=== PATIENT | male | born 1980 | race Hispanic/Latino ===

== ENCOUNTER → 2024-05-10 | Outpatient (CLI) | payer MEDICARE ==
[2024-05-10 14:29] LABS: CREATININE 9.9 mg/dL (0.5-1.3)
== END | disposition home or self-care (01) ==
LOC: LAB 13:13
PROVIDERS: ATTEND Urology
DX: N28.1 Cyst of kidney, acquired (principal); N40.0 Benign prostatic hyperplasia without lower urinary tract symptoms
CPT/HCPCS: 36415; 82565; 84520

== ENCOUNTER 2024-11-08 16:11 | Emergency (ER) | payer MEDICARE ==
[~2024-11-08] VITALS: Ht 165.1 cm; Wt 112.5 kg
--- NOTE | 2024-11-08 16:29 | ERN ---
ED Note History of Present Illness Stated Complaint: SWELLING ON LEFT FOOT Chief Complaint: FOOT INJURY/PAIN Time Seen by MD: 16:13 Dictation: PATIENT IS A 44-YEAR-OLD MALE COMING IN WITH LEFT FOOT SWELLING NON TRAUMA FOR ONE WEEK. NO FEVER NO CHILLS NO NAUSEA VOMITING. PATIENT STATES HE HAS A HEMODIALYSIS, WENT TODAY AND COMPLETED 3 HOURS OF HEMODIALYSIS. HE HAS AN APPOINTMENT WITH HIS DOCTOR NEXT WEEK HOWEVER WAS CONCERNED AND WANTED TO COME IN FOR FURTHER EVALUATION AND TREATMENT TODAY. Allergies: Coded Allergies: No Known Allergies (Unverified Allergy, Unknown, 11/08/24) Past Medical History RN Note Reviewed/Agreed w/PFSH: Yes Review of System Dictation CONSTITUTIONAL: NEGATIVE EXCEPT FOR HPI HEAD/FACE: NEGATIVE EXCEPT FOR HPI EENT: NEGATIVE EXCEPT FOR HPI RESPIRATORY: NEGATIVE EXCEPT FOR HPI GASTROINTESTINAL/ABDOMINAL: NEGATIVE EXCEPT FOR HPI GENITOURINARY: NEGATIVE EXCEPT FOR HPI MUSCULOSKELETAL: NEGATIVE EXCEPT FOR HPI LEFT FOOT SWELLING INTEGUMENTARY: NEGATIVE EXCEPT FOR HPI NEUROLOGICAL/PSYCH: NEGATIVE EXCEPT FOR HPI HEMATOLOGIC/LYMPHATIC: NEGATIVE EXCEPT FOR HPI ALL SYSTEMS NEGATIVE, EXCEPT NOTED ABOVE. 13 POINT REVIEW OF SYSTEMS ASSESSED AND ALL NEGATIVE EXCEPT FOR ABOVE. Initial Vital Sign VS Vital Signs Date Time Temp Pulse Resp B/P (MAP) Pulse Ox O2 Delivery O2 Flow Rate FiO2 11/08/24 16:26 97.5 97 16 121/79 100 Room Air 0 11/08/24 16:32 21 Physical Exam Dictation VITAL SIGNS REVIEWED GENERAL APPEARANCE: ALERT, ORIENTED X 3, NO ACUTE DISTRESS, WELL DEVELOPED, NOURISHED. HEAD AND FACE: NON-TRAUMATIC. EYES: PERRL, PINK CONJUNCTIVAS, EYELID NO TRAUMA, ANTERIOR CHAMBER WITH ARCUS SENILIS. EARS: PINNAS INTACT AND NO SIGNS OF TRAUMA OR ERYTHEMA EAR CANALS CLEAR AND NO DISCHARGE TM NO ERYTHEMA NOSE: NO DISCHARGE, NO BLEEDING. OROPHARYNX: MOUTH NORMAL, TONGUE PINK, PHARYNX CLEAR,NO ERYTHEMA, TONSILS NO EXUDATES, NO ABSCESSES NOTED, MUCOUS MEMBRANE MOIST NECK: SUPPLE, NON-TENDER, NO THYROMEGALY, NO MASSES, NO JVD, NO BRUITS BREAST:DEFERRED CHEST:NO TENDERNESS, NO CREPITUS, NO PARADOXICAL MOVEMENT, NO RETRACTIONS LUNGS:CLEAR, WELL-VENTILATED, SYMMETRIC, NO RALES, NO WHEEZING, NO RHONCHI, NO STRIDOR, GOOD BREATH SOUNDS BILATERALLY HEART: REGULAR RATE, REGULAR RHYTHM, NO MURMUR, NO GALLOPS VASCULAR: NO PERIPHERAL EDEMA, ABDOMEN: SOFT, POSITIVE BOWEL SOUNDS, NONDISTENDED, NO GUARDING, NONTENDER, NO REBOUND, NO MASSES NO HEPATOMEGALY, NO SPLENOMEGALY, NO DUGAN'S SIGN, NO HERNIAS. RECTAL: DEFERRED GENITAL: DEFERRED NEUROLOGICAL: NORMAL SPEECH, MOTOR FUNCTION INTACT, SENSORY FUNCTION INTACT MUSCULOSKELETAL: NECK NONTENDER, FULL RANGE OF MOTION, BACK NONTENDER, FULL RANGE OF MOTION, EXTREMITIES: MILD LEFT DORSAL FOOT SWELLING. NO TENDERNESS NO ERYTHEMA PULSES ARE PALPABLE SKIN: COLOR PINK, DRY, NO TURGOR, NO RASH, NO LACERATIONS, NO ABRASIONS, NO CONTUSIONS. LYMPHATIC: DEFERRED Results (Laboratory/Radiology) Laboratory/Radiology Laboratory Tests Test 11/08/24 16:46 White Blood Count 8.2 K/uL (4.8-10.8) Red Blood Count 3.40 MIL/uL (4.50-6.20) L Hemoglobin 10.7 g/dL (14.0-18.0) L Hematocrit 33.9 % (42-54) L Mean Corpuscular Volume 99.7 fL (79-99) H Mean Corpuscular Hemoglobin 31.5 pg (27.0-33.0) Mean Corpuscular Hemoglobin Concent 31.6 g/dL (32.0-36.0) L Red Cell Distribution Width 15.3 % (11.0-15.5) Platelet Count 125 K/uL (130-400) L Mean Platelet Volume 12.0 fL (7.5-10.5) H Immature Granulocyte % (Auto) 0.6 % (0-1) Neutrophils (%) (Auto) 75.1 % (40.0-77.0) Lymphocytes (%) (Auto) 10.7 % (21.0-51.0) L Monocytes (%) (Auto) 9.5 % (3.0-13.0) Eosinophils (%) (Auto) 3.3 % (0.0-8.0) Basophils (%) (Auto) 0.8 % (0.0-5.0) Neutrophils # (Auto) 6.2 K/uL (1.8-7.7) Lymphocytes # (Auto) 0.9 K/uL (1.0-4.8) L Monocytes # (Auto) 0.8 K/uL (0.1-1.0) Eosinophils # (Auto) 0.27 K/uL (0.00-0.70) Basophils # (Auto) 0.07 K/uL (0.00-0.20) Absolute Immature Granulocyte (auto 0.05 K/uL (0-1) Nucleated Red Blood Cells 0.0 % (0.0-0.19) Sodium Level 141 mmol/L (136-145) Potassium Level 4.7 mmol/L (3.5-5.1) Chloride Level 98 mmol/L (101-111) L Carbon Dioxide Level 34 mmol/L (21-32) H Blood Urea Nitrogen 39 mg/dL (7-18) H Creatinine 8.3 mg/dL (0.5-1.3) *H Glomerular Filtration Rate Calc 7 mL/min (>90) Random Glucose 94 mg/dL (70-105) Total Calcium 9.0 mg/dL (8.5-10.1) 1710, NOT FOOT X-RAY NEGATIVE Labs Reviewed?: Yes ED Course ED Course Orders Procedure Category Date Status Time Foot Comp 3+Vws Lt RAD 11/08/24 Taken 16:26 Cbc With Differential LAB 11/08/24 Complete 16:26 Basic Metabolic Panel LAB 11/08/24 Complete 16:26 Vital Signs Date Time Temp Pulse Resp B/P (MAP) Pulse Ox O2 Delivery O2 Flow Rate FiO2 11/08/24 16:32 98.4 79 20 131/62 98 Room Air* 0 21 11/08/24 16:26 97.5 97 16 121/79 100 Room Air 0 1725, patient's labs unremarkable for infection he does have end-stage renal disease and anemia of chronic renal failure. He completed hemodialysis today foot x-ray is negative we will be discharged home with foot swelling and told to see his primary care doctor Medical Decision Making MDM Medical discharge making based on basic labs and x-ray of left foot for swelling. Labs unremarkable for infection Foot x-ray negative Patient will be told to keep left foot elevated and follow up with his primary care doctor as soon as possible DX & DISP Disposition: Discharge Departure Impression: Primary Impression: Swelling of left foot Additional Impressions: ESRD (end stage renal disease) on dialysis, Anemia of chronic renal failure Condition: Stable Additional Instructions: Follow-up with primary care provider in 1 to 2 days. Take medications as directed here in the emergency room. Okay to continue home medications unless otherwise discussed during your visit in the emergency room today. Return to your nearest emergency room if symptoms worsen or if there is no improvement. Call 911 if you need immediate assistance. Take Tylenol or Motrin [id number] as needed and if no contraindications are present. Increase oral hydration. A wound culture or urine culture was ordered here in the emergency room department please follow-up with primary care provider and advise them to get repeat ports from our facility. If you had any Jas wrap/splints that were applied here, please do not remove them until you see your primary care or specialty. Keep left foot elevated as much as possible, see your primary care doctor for follow up in 1-2 days. Referrals: JONNY SALES MD (PCP) Time of Disposition: 17:26 I have reviewed the case, and I agree with, Diagnosis and Plan PEREZ MARADIAGA NP Nov 08, 2024 16:29
[2024-11-08 17:03] LABS: BASOPHILS # (AUTO) 0.07 K/uL (0.00-0.20); BASOPHILS % (AUTO) 0.8 % (0.0-5.0); EOSINOPHILS # (AUTO) 0.27 K/uL (0.00-0.70); EOSINOPHILS % (AUTO) 3.3 % (0.0-8.0); HEMATOCRIT 33.9 % (42-54); IMMATURE GRANULOCYTE ABSOLUTE 0.05 K/uL (0-1); LYMPHOCYTES # (AUTO) 0.9 K/uL (1.0-4.8); LYMPHOCYTES % (AUTO) 10.7 % (21.0-51.0); MEAN CORPUSCULAR HEMOGLOBIN 31.5 pg (27.0-33.0); MEAN CORPUSCULAR HGB CONC 31.6 g/dL (32.0-36.0); MEAN CORPUSCULAR VOLUME 99.7 fL (79-99); MONOCYTES # (AUTO) 0.8 K/uL (0.1-1.0); MONOCYTES % (AUTO) 9.5 % (3.0-13.0); NEUTROPHILS # (AUTO) 6.2 K/uL (1.8-7.7); NEUTROPHILS % (AUTO) 75.1 % (40.0-77.0); PLATELET COUNT (AUTO) 125 K/uL (130-400); RED CELL DISTRIBUTION WIDTH 15.3 % (11.0-15.5); WHITE BLOOD COUNT (AUTO) 8.2 K/uL (4.8-10.8)
[2024-11-08 17:04] LABS: POTASSIUM 4.7 mmol/L (3.5-5.1)
[2024-11-08 17:13] LABS: CREATININE 8.3 mg/dL (0.5-1.3)
[2024-11-08 17:27] VITALS: BP 127/68; PULSE 74; RESP 18; TEMP 98.1; O2SAT 98
--- NOTE | 2024-11-08 17:51 | HMCIMG ---
FOOT COMP 3+VWS LT REASON: NON TRAUMA LEFT DORSAL FOOT SWELLING SEVEN DAYS TECHNIQUE: 3 views were obtained. FINDINGS: There is no evidence of fracture or dislocation. There is no joint effusion. The soft tissues appear unremarkable. There is no evidence of a radiopaque foreign body. There is no evidence of osteomyelitis or gas forming infection. IMPRESSION: No acute findings.
== END 2024-11-08 17:32 | disposition home or self-care (01) ==
LOC: EDH 16:11
DX: M79.89 Other specified soft tissue disorders (principal); N18.6 End stage renal disease; D63.1 Anemia in chronic kidney disease; Z99.2 Dependence on renal dialysis
CPT/HCPCS: 36415; 73630; 80048; 85025; 99284

== ENCOUNTER → 2025-04-22 | Outpatient (CLI) | payer MEDICARE ==
[~2025-04-22] MED LIST: AMLO-257 PO; ASPI-1443 PO; ATOR10 PO; BENZ-39 PO; GLIP2.5T23 PO; SEVE800T7 PO
[2025-04-22 21:42] VITALS: PULSE 84; RESP 12
[2025-04-22 22:00] VITALS: PULSE 84; RESP 12
[2025-04-22 22:29] VITALS: PULSE 80; RESP 24
[2025-04-22 23:01] VITALS: PULSE 87; RESP 24
[2025-04-22 23:34] VITALS: PULSE 87; RESP 20
[2025-04-23] VITALS (11 sets, daily range): PULSE 85–97; RESP 20–28
== END | disposition home or self-care (01) ==
LOC: SLP 20:35
PROVIDERS: ATTEND Family Medicine
DX: R06.83 Snoring (principal); R53.83 Other fatigue; G47.39 Other sleep apnea
CPT/HCPCS: 95810

== ENCOUNTER → 2025-07-18 | Outpatient (CLI) | payer MEDICARE ==
[~2025-07-18] MED LIST changes: -AMLO-257 PO; -ATOR10 PO; -BENZ-39 PO; +CHOL2000 PO; +EMPA25TA PO; -GLIP2.5T23 PO; +METO-408 PO; +MIDO5TAB4 PO; +NITR0.4T50 SL; +PANT40TA54 PO; +PRAS10TA9 PO; +ROSU40TA88 PO; +SENN-7 PO; +SPIR25TA6 PO
[2025-07-18 21:37] VITALS: PULSE 78; RESP 20
[2025-07-18 22:00] VITALS: PULSE 84; RESP 18
[2025-07-18 22:30] VITALS: PULSE 82; RESP 12
[2025-07-18 23:00] VITALS: PULSE 80; RESP 4
[2025-07-18 23:30] VITALS: PULSE 78; RESP 18
[2025-07-19] VITALS (8 sets, daily range): PULSE 72–82; RESP 8–20
== END | disposition home or self-care (01) ==
LOC: SLP 20:30
PROVIDERS: ATTEND Family Medicine
DX: G47.33 Obstructive sleep apnea (adult) (pediatric) (principal); R06.83 Snoring; R53.83 Other fatigue; R09.02 Hypoxemia; I10 Essential (primary) hypertension
CPT/HCPCS: 95811